=== PATIENT | male | born 1950 | race African-American/Black ===

== ENCOUNTER 2022-04-29 04:03 | Outpatient (CLI) | payer BC, SELFPAY ==
[2022-04-29 09:43] LABS: Abs Immature Grans 0.01 10^3/uL (0.0-0.06); Absolute Basophil Count 0.03 10^3/uL (0.0-0.2); Absolute Eosinophil Count 0.22 10^3/uL (0.0-0.7); Absolute Lymphocyte Count 4.29 10^3/uL (1.2-3.4); Absolute Monocyte Count 0.74 10^3/uL (0.1-0.8); Absolute Neutrophil Count 3.02 10^3/uL (1.2-6.7); Basophils % 0.4; Eosinophils % 2.6; HCT 40.2 % (40.0-50.0); HGB 13.7 g/dL (13.5-17.5); Immature Grans % 0.1; Lymphocytes % 51.6; MCHC 34.1 % (32.0-36.0); MCV 88 fL (80-95); MPV 9.5 fL (8.0-11.0); Monocytes % 8.9; Neutrophils % 36.4; Platelet Count 240 10^3/uL (130-400); RBC 4.57 10^6/uL (4.36-5.78); RDW 13.9 % (11.8-14.1); RDW-SD 44.7 fL; WBC 8.31 10^3/uL (4.4-10.8)
[2022-04-29 11:04] LABS: ALT 30 U/L (16-63); AST 22 U/L (15-37); Alkaline Phosphatase 62 U/L (46-116); Anion Gap 6.4 mmol/L (3-11); BUN 14 mg/dL (7-18); Bilirubin, Total 0.7 mg/dL (0.2-1.0); CO2 30.6 mmol/L (21.0-32.0); CREATININE 1.2 mg/dL (0.70-1.30); Calcium 9.2 mg/dL (8.5-10.1); Calculated LDL 76 mg/dL (<100); Chloride 105 mmol/L (98-107); Cholesterol 170 mg/dL (<200); Estimated GFR 63.85 (mL/min/1.73m2); Glucose 150 mg/dL (74-106); HDL Cholesterol 41 mg/dL (40-60); Magnesium 1.8 mg/dL (1.8-2.4); Potassium 3.1 mmol/L (3.5-5.1); Sodium 142 mmol/L (136-145); Total Protein 7.9 g/dL (6.4-8.2); Triglyceride 268 mg/dL (<150)
[2022-04-30 10:51] LABS: Hepatitis C Ab w Rflx HCV PCR Negative (Negative)
== END 2022-04-29 04:04 | disposition home or self-care (01) ==
LOC: LBO 04:04
PROVIDERS: PCP Nurse Practitioner; Referring Provider Nurse Practitioner; Visit Provider Nurse Practitioner
DX: E11.9 Type 2 diabetes mellitus without complications (principal); E78.5 Hyperlipidemia, unspecified; I10 Essential (primary) hypertension; R25.2 Cramp and spasm; Z11.59 Encounter for screening for other viral diseases
CPT/HCPCS: 36415; 80053; 80061; 86803; 83735; 85025

== ENCOUNTER 2022-05-20 14:12 | Outpatient (CLI) | payer BC, SELFPAY ==
--- NOTE | 2022-05-20 14:30 | RT.EKG_ITS ---
APPROVED REPORT Exam: Resting ECG Reason for Exam: dizziness Patient Location: O HR:74 bpm ECG Measurements Heart Rate 74 AXIS MO 211 P 12 QRSd 97 QRS -32 QT 420 T 4 QTc 466 Conclusion Sinus rhythm...normal P axis, V-rate 50- 99 Left axis deviation...QRS axis (-30,-90)
== END 2022-05-20 14:13 | disposition home or self-care (01) ==
PROVIDERS: PCP Nurse Practitioner; Visit Provider Nurse Practitioner
DX: R42 Dizziness and giddiness (principal); E87.6 Hypokalemia
CPT/HCPCS: 93010

== ENCOUNTER 2022-05-20 14:55 | Outpatient (REF) | payer BC, SELFPAY ==
[2022-05-20 18:43] LABS: Abs Immature Grans 0.01 10^3/uL (0.0-0.06); Absolute Basophil Count 0.04 10^3/uL (0.0-0.2); Absolute Eosinophil Count 0.21 10^3/uL (0.0-0.7); Absolute Lymphocyte Count 4.37 10^3/uL (1.2-3.4); Absolute Monocyte Count 0.71 10^3/uL (0.1-0.8); Absolute Neutrophil Count 3.07 10^3/uL (1.2-6.7); Basophils % 0.5; Eosinophils % 2.5; HCT 41.3 % (40.0-50.0); HGB 13.9 g/dL (13.5-17.5); Immature Grans % 0.1; MCH 29.7 pg (27.0-33.0); MCHC 33.7 % (32.0-36.0); MCV 88 fL (80-95); MPV 10.3 fL (8.0-11.0); Monocytes % 8.4; Neutrophils % 36.5; Platelet Count 263 10^3/uL (130-400); RBC 4.68 10^6/uL (4.36-5.78); RDW 13.5 % (11.8-14.1); RDW-SD 43.8 fL; WBC 8.41 10^3/uL (4.4-10.8)
[2022-05-20 18:53] LABS: Anion Gap 10.6 mmol/L (3-11); BUN 18 mg/dL (7-18); CO2 26.4 mmol/L (21.0-32.0); CREATININE 1.3 mg/dL (0.70-1.30); Calcium 9.6 mg/dL (8.5-10.1); Chloride 103 mmol/L (98-107); Estimated GFR 58.01 (mL/min/1.73m2); Glucose 153 mg/dL (74-106); Potassium 3.3 mmol/L (3.5-5.1); Sodium 140 mmol/L (136-145)
== END 2022-05-20 14:56 | disposition home or self-care (01) ==
LOC: LBN 14:55
PROVIDERS: PCP Nurse Practitioner; Visit Provider Nurse Practitioner
DX: R79.9 Abnormal finding of blood chemistry, unspecified (principal); E87.6 Hypokalemia
CPT/HCPCS: 80048; 85025

== ENCOUNTER 2022-08-23 19:21 | Outpatient (REF) | payer BC, SELFPAY ==
[2022-08-26 14:23] LABS: Helicobacter pylori Ag, Feces Positive (Negative)
== END 2022-08-23 19:22 | disposition home or self-care (01) ==
LOC: LBN 19:21
PROVIDERS: PCP Nurse Practitioner; Visit Provider Nurse Practitioner Family
DX: K21.9 Gastro-esophageal reflux disease without esophagitis (principal); R10.13 Epigastric pain
CPT/HCPCS: 87338

== ENCOUNTER 2022-09-23 08:45 | Emergency (ER) | payer BC, SELFPAY ==
[2022-09-23 08:49] VITALS: BP 144/82; PULSE 89; RESP 18; TEMP 36.3; O2SAT 95
--- NOTE | 2022-09-23 09:00 | DI.CT_ITS ---
Exam(s) CT ABDOMEN PELVIS W EXAM: CT ABDOMEN PELVIS W CLINICAL HISTORY: chronic recurrent abd pain TECHNIQUE: Imaging Protocol: Axial computed tomography images with coronal and sagittal reformatted images were created and reviewed CONTRAST MATERIAL: Intravenous: Omnipaque 350 Contrast volume:100 mL Oral: No COMPARISON: No exams were available for comparison FINDINGS: ABDOMEN: Lung Bases: Marked coronary artery calcification and/or stents. There are infiltrates seen in the ri ght middle lobe and the left lingula with bronchiectatic changes. Liver: Normal density. No suspicious hepatic mass. Portal, Superior Mesenteric, and Splenic Veins: Unremarkable. Gallbladder and Biliary Tract: The gallbladder is distended. There is thickening of the wall of the gallbladder. Pericholecystic fluid and inflammation is present. There is no intra or extrahepatic b iliary ductal dilatation. No calcified stones are identified. Pancreas: Normal density, no abnormal calcifications or inflammatory process. Spleen: Normal. Adrenals: No masses seen. Kidneys: Normal size, contour and axis. No radiodense stones or obstructive uropathy. There are bilat eral simple renal cysts present. The largest simple renal cyst is seen in the midpole of the left ki dney and measures 6.3 x 7.3 cm. There is a septated cyst in the superior pole of the right kidney me asuring 7.6 x 8.1 cm. There thin septations seen within the cyst. The septations show thin calcific ation. No solid component is identified. No solid renal masses are seen. Abdominal Aorta: Abdominal portion non-dilated. Atherosclerosis. Bowel: There is diverticulosis of the colon, but no evidence of acute diverticulitis. There is a sma ll diverticulum arising from the duodenum. There is no evidence of bowel wall thickening or or obstr uction. Appendix is unremarkable. Peritoneal Cavity: No ascites, collection or mesenteric inflammatory response. No free air. Lymph Nodes: Mildly enlarged lymph nodes are seen in the upper abdomen. Bones: Within normal limits for the patient's age. Soft Tissues: Unremarkable. PELVIS: Bladder: There is thickening of the wall of the urinary bladder. The bladder is underdistended. Reproductive Organs: There is markedly enlarged prostate gland. Lymph Nodes: Within normal limits. Bones: Within normal limits for the patient's age. IMPRESSION: 1. Distended irregular good gallbladder with irregular gallbladder wall thickening. Pericholecystic inflammation is seen. There is decreased attenuation in the adjacent liver. No calcified stones are seen. Differential considerations include acalculous cholecystitis, gallbladder or hepatic neoplasm . Pancreatic neoplasm cannot be excluded. Gallbladder ultrasound should be considered in this patie nt. 2. Bilateral renal cysts. No follow-up is recommended. 3. Infiltrates in both the right middle and left lingular lobes with focal bronchiectasis. This may represent scarring. Atelectasis or pneumonia should also be considered. Please correlate clinically . 4. Marked enlargement of the prostate gland. 5. Findings were discussed with Dr. Cullen at 11:47 a.m. on 09/23/2022. RADIATION DOSE DELIVERED: 913.8mGy.cm Total DLP DATA REPOSITORY: All CT scans at this facility are submitted to the National Radiology Data Registry (NRDR) Dose Index Registry (DIR) with the [employer] (ACR). RADIATION OPTIMIZATION: All CT scans at this facility use at least one of these dose optimization te chniques: automated exposure control; mA and/or kV adjustment per patient size (includes targeted exa ms where dose is matched to clinical indication); or iterative reconstruction.
[2022-09-23] MEDS: Normal Saline 1,000 ML 1000 ML IV (09:05)
--- NOTE | 2022-09-23 09:07 | W.ED.GENAD ---
Discharge Plan Disposition Patient Disposition: Transfer-Acute Inpatient Care Specific Acute Inpt Facility: [facility] Condition: Stable Discharge Details Chief Complaint: Abd Prob Clinical Impression: Cholecystitis, Choledocholithiasis Primary Care Provider: Donna Henson ED Provider: Demarco Cullen Home Meds and New Rx's Prescriptions: No Action nystatin 100,000 unit/gram cream 1 applic topical BID PRN (Reason: fungal rash feet) Qty: 30 5RF atorvastatin 10 mg tablet 10 mg PO DAILY Qty: 90 1RF amlodipine 10 mg tablet 10 mg PO DAILY Qty: 90 1RF bisoprolol fumarate 5 mg tablet 5 mg PO DAILY Qty: 90 1RF losartan 100 mg tablet 100 mg PO DAILY Qty: 90 1RF metformin 500 mg tablet 500 mg PO DAILY Qty: 90 1RF hydrochlorothiazide 12.5 mg tablet 12.5 mg PO DAILY aspirin [Adult Aspirin Regimen] 81 mg tablet,delayed release (DR/EC) 81 mg PO DAILY Medical Decision Making 71-year-old male presents with recurrent abdominal pain nausea decreased p.o. intake, recently completed a course of antibiotics for H. pylori, no history of abdominal surgeries, resting comfortably hemodynamically stable not on peritoneal. Consider recurrent gastritis versus colitis versus diverticulitis versus less likely bowel obstruction versus must consider malignancy versus irritable bowel disease. Screening labs imaging GI cocktail disposition pending results 13: 15 CT scan concerning for a calculus cholecystitis. Upon reviewing images and discussing case with general surgeon Dr. Moss, common bile duct does appear to be dilated and patient does have an obstructive pattern on his hepatic labs concerning for choledocholithiasis and cholecystitis. Given likely need for ERCP we are consulting [facility] to see if they would like to take patient for ERCP and cholecystectomy. Started on antibiotics n.p.o. fluids running pain controlled. 14: 28 patient resting comfortably no acute distress. Discussed case with Dr. Coleman of general surgery at [facility] who agrees the patient will likely need ERCP and cholecystectomy however due to bed constraints we are currently working out how this can be accomplished. Waiting for callback. 15: 03 patient was comfortably no acute distress. Patient has been accepted for ED to ED transfer accepting physician Dr. Madden. Patient family amenable to trial HPI General Date/Time Provider Initiated Documentation: 09/23/22 08:49. HPI Narrative: 71-year-old male history of hypertension diabetes recent completion of oral antibiotics for H. pylori, recurrent gastritis abdominal pain presents with recurrent abdominal discomfort nausea and decreased p.o. intake. No history of abdominal surgeries. Related Data Home Medications Medication Instructions Recorded Confirmed aspirin 81 mg tablet,delayed 81 mg PO DAILY 12/02/21 09/23/22 release (Adult Aspirin Regimen) amlodipine 10 mg tablet 10 mg PO DAILY #90 tabs 04/22/22 09/23/22 atorvastatin 10 mg tablet 10 mg PO DAILY #90 tabs 04/22/22 09/23/22 bisoprolol fumarate 5 mg tablet 5 mg PO DAILY #90 tabs 04/22/22 09/23/22 losartan 100 mg tablet 100 mg PO DAILY #90 tabs 04/22/22 09/23/22 metformin 500 mg tablet 500 mg PO DAILY #90 tabs 04/22/22 09/23/22 nystatin 100,000 unit/gram topical 1 applic topical BID PRN fungal 04/22/22 09/23/22 cream rash feet #30 grams hydrochlorothiazide 12.5 mg tablet 12.5 mg PO DAILY 08/19/22 09/23/22 Previous Rx's Medication Instructions Recorded amlodipine 10 mg tablet 10 mg PO DAILY #90 tabs 04/22/22 atorvastatin 10 mg tablet 10 mg PO DAILY #90 tabs 04/22/22 bisoprolol fumarate 5 mg tablet 5 mg PO DAILY #90 tabs 04/22/22 losartan 100 mg tablet 100 mg PO DAILY #90 tabs 04/22/22 metformin 500 mg tablet 500 mg PO DAILY #90 tabs 04/22/22 nystatin 100,000 unit/gram topical 1 applic topical BID PRN fungal 04/22/22 cream rash feet #30 grams Allergies Allergy/AdvReac Type Severity Reaction Status Date / Time environmental allergies Allergy Intermediate dust, Uncoded 09/23/22 08:57 hayfever General Stated Complaint: Abd Prob RADHA: 3 Review of Systems Narrative: Review of Systems Constitutional: negative Eyes: negative ENT: negative Cardiovascular: negative Respiratory: negative Gastrointestinal: Abdominal pain, nausea : negative Musculoskeletal: negative Skin: negative Neurologic: negative Psych: negative PFSH All Active Problems (Updated 09/23/22 @ 15:11 by Demarco Cullen MD) Cholecystitis (Acute) Choledocholithiasis (Acute) Helicobacter pylori (H. pylori) infection (Acute ~08/2022) Gastroesophageal reflux disease (Chronic) Hyperlipidemia (Acute) Diabetes type 2, controlled (Acute) Hypertension (Chronic) Family History Paternal Grandfather Cancer Mother Heart disease Hypertension Father Hypertension Social History Smoking/Tobacco Use Status: Former Tobacco Use Smoking risk assessment performed?: Yes Alcohol Intake: former Drug use: Never Household members: family Communication Needs: None Current gender identity: male How often do you talk on the phone with friends or family?: three or more times per week Panel score (0-1 are the most socially isolated patients): 1 What type of physical activity do you participate in: none Do you feel safe at home: Yes Exam Narrative Exam Narrative: Physical Examination General: alert, awake, cooperative, resting comfortably, no acute distress HEENT: normocephalic, atraumatic; PERRL, EOM intact, conjunctiva normal; no nasal discharge; slight drying of oral mucosa Neck: supple, trachea midline; full ROM Chest: normal to inspection Respiratory: normal respiratory effort, speaking in full sentences, clear to auscultation, no wheezing, rales or rhonchi Cardiac: regular rate, regular rhythm, S1S2 intact, no murmurs rubs or gallops GI: abdomen soft, non-tender, non-distended; no palpable mass or hepatosplenomegaly Skin: no lesions, rashes or trauma appreciated Neuro: AAOx3, normal speech, moving all extremities Psych: Appropriate mood and affect Course Vital Signs Vital signs: Vital Signs Temperature 36.3 C L 09/23/22 08:49 Pulse 89 09/23/22 08:49 Respiratory Rate 18 09/23/22 08:49 Blood Pressure 144/82 H 09/23/22 08:49 Pulse Oximetry 95 09/23/22 08:49 Temperature 36.3 C L 09/23/22 08:49 Temperature Source Tympanic 09/23/22 08:49 Pulse 89 09/23/22 08:49 Respiratory Rate 18 09/23/22 08:49 Respiratory Effort Normal 09/23/22 08:53 Blood Pressure 144/82 H 09/23/22 08:49 Blood Pressure Position Sitting 09/23/22 08:49 Pulse Oximetry 95 09/23/22 08:49 Oxygen Delivery Method Room Air 09/23/22 08:49 Oxygen Flow Rate 0 09/23/22 08:49 Pain Level 2 09/23/22 08:54
[2022-09-23 09:22] LABS: Abs Immature Grans 0.07 10^3/uL (0.0-0.06); Absolute Eosinophil Count 0.04 10^3/uL (0.0-0.7); Absolute Monocyte Count 1.53 10^3/uL (0.1-0.8); Absolute Neutrophil Count 9.21 10^3/uL (1.2-6.7); Basophils % 0.1; Eosinophils % 0.3; HCT 38.3 % (40.0-50.0); HGB 12.7 g/dL (13.5-17.5); Immature Grans % 0.5; MCH 28.7 pg (27.0-33.0); MCHC 33.2 % (32.0-36.0); MCV 87 fL (80-95); MPV 9.1 fL (8.0-11.0); Monocytes % 11.3; Neutrophils % 67.8; RBC 4.42 10^6/uL (4.36-5.78); RDW 14.5 % (11.8-14.1); RDW-SD 46.7 fL; WBC 13.58 10^3/uL (4.4-10.8)
[2022-09-23 09:24] LABS: Absolute Basophil Count 0.01 10^3/uL (0.0-0.2); Absolute Lymphocyte Count 2.72 10^3/uL (1.2-3.4)
[2022-09-23] MEDS: Ondansetron 4 MG/2 ML VIAL IVP (09:25)
[2022-09-23] MEDS: Famotidine 20 MG/2 ML VIAL IVP (09:26)
[2022-09-23] MEDS: ACETAMINOPHEN 1,000 MG/100 ML BTL 400 MG IVPB (09:29)
[2022-09-23] MEDS: Mylanta Suspension 30 ML CUP (09:43)
[2022-09-23 09:47] LABS: ALT 264 U/L (16-63); AST 175 U/L (15-37); Albumin 3.6 g/dL (3.4-5.0); Alkaline Phosphatase 308 U/L (46-116); Anion Gap 7.7 mmol/L (3-11); BUN 15 mg/dL (7-18); CO2 29.3 mmol/L (21.0-32.0); CREATININE 1.4 mg/dL (0.70-1.30); Calcium 9.4 mg/dL (8.5-10.1); Chloride 101 mmol/L (98-107); Estimated GFR 53.07 (mL/min/1.73m2); Glucose 125 mg/dL (74-106); Lipase 35 U/L (16-77); Potassium 3.7 mmol/L (3.5-5.1); Sodium 138 mmol/L (136-145); Total Protein 7.7 g/dL (6.4-8.2)
[2022-09-23 09:48] LABS: Diff Comment Agrees w/ Instrument; Platelet Count 300 10^3/uL (130-400); RBC Morphology Normal
[2022-09-23 09:57] LABS: Bilirubin, Total 6.9 mg/dL (0.2-1.0)
[2022-09-23 10:35] LABS: Bilirubin Moderate (Negative); Blood Negative (Negative); Clarity Clear (Clear); Glucose Negative (Negative); Ketones Negative (Negative); Leukocyte Esterase Negative (Negative); Nitrite Negative (Negative); Specific Gravity 1.015 (1.005-1.025)
[2022-09-23] MEDS: Omnipaque 350 MG/ML 500 ML BTL-Imaging package 100 ML IJ (10:36)
[2022-09-23] MEDS: Normal Saline - Diluent 50 ML VIAL IJ (10:37)
[2022-09-23 10:47] LABS: Bacteria Negative HPF (Negative); C & S Indicated? No; Casts Negative LPF (Negative); Crystals Negative HPF (Negative); Epithelial Cells Rare HPF (Negative); Mucus Trace (Negative); RBC 0-2 HPF (0-2); WBC 0-2 HPF (0-5)
[2022-09-23 11:17] VITALS: BP 132/75; PULSE 82; RESP 14; O2SAT 96
[2022-09-23 12:18] VITALS: BP 135/71; PULSE 85; RESP 14; O2SAT 95
[2022-09-23] MEDS: PIPERACILLIN/TAZO 4.5 GM in Normal Saline 100 ML IVPB (12:29)
--- NOTE | 2022-09-23 12:41 | W.SURGCON ---
Date of service: 09/23/22 Time of Service: 13:05 Assessment and Plan Assessment and plan (1) Choledocholithiasis: Status: Acute Assessment and plan: 71-year-old man with biliary duct obstruction based off of his lab work. He is hemodynamically stable. His symptoms have been present for months. I suspect he has been having symptomatic gallbladder attacks and/for chronic cholecystitis for months but has finally passed a gallstone into his common bile duct. Mirrizi syndrome is something to consider however unusual for the bilirubin to go so high in this syndrome. Though he is hemodynamically stable and neurologically intact, ascending cholangitis is a concern. He has a leukocytosis and his bilirubin is normal 7. I reviewed his CT scan and his common bile duct looks like it is 10-11 mm in diameter to which he is dilated. His gallbladder looks chronically thickened which is probably chronic cholecystitis. Gallbladder malignancy is within the differential diagnosis considering the radiographic appearance. The xanthogranulomatous cholecystitis could also be considered based off of the radiographic appearance. The acute part of the presentation today, which is really a very chronic condition that appears to be acutely worse, I recommend prompt ERCP. To definitively assess the bile duct we can get an MRCP done here today however I think he needs an ERCP done prior to surgery. If ERCP fails, a common bile duct exploration will need to be done surgically. I recommend clearing the duct prior to cholecystectomy which is also going to be a necessity. The patient can be transferred to [facility] for ERCP and the cholecystectomy can be done here at [facility]. We will keep him on antibiotics in the meantime. Hopefully they are able to do the ERCP today and if so, we can do his gallbladder tomorrow. I relayed all this to the ER physician who is going to consult GI for urgent ERCP. History of Present Illness Narrative: The patient is a 71-year-old man who has never had abdominal surgery and overall does not really have any known health problems. His daughter is a nurse. Per both of their report, he has been having abdominal discomfort, nausea, reflux and issues with eating for many many months now. He has had outpatient work-up that has not revealed anything as of yet. He was found to have H. pylori 3 to 4 weeks ago and is currently being treated for that but has had no improvement in any of his symptoms. They come into the ER today, not because symptoms are any worse than usual, but because they feel that things are not getting any better and the daughter is concerned that there is something more urgent going on. Lab work showed a leukocytosis, a bilirubin of almost 7 and elevated transaminases and elevated alk phosphatase. A CT scan was done which showed a thickened gallbladder. He denies any fevers or chills at home. No prior intra-abdominal surgery. PFSH All Active Problems (Updated 09/23/22 @ 15:11 by Demarco Cullen MD) Cholecystitis (Acute) Choledocholithiasis (Acute) Helicobacter pylori (H. pylori) infection (Acute ~08/2022) Gastroesophageal reflux disease (Chronic) Hyperlipidemia (Acute) Diabetes type 2, controlled (Acute) Hypertension (Chronic) Family History Paternal Grandfather Cancer Mother Heart disease Hypertension Father Hypertension Social History Smoking/Tobacco Use Status: Former Tobacco Use Smoking risk assessment performed?: Yes Alcohol Intake: former Drug use: Never Household members: family Communication Needs: None Current gender identity: male How often do you talk on the phone with friends or family?: three or more times per week Panel score (0-1 are the most socially isolated patients): 1 What type of physical activity do you participate in: none Do you feel safe at home: Yes Exam Narrative Exam Narrative: General: Nontoxic, comfortable and interactive, scleral icterus is noted Neuro: Alert and oriented x3 Psych: Good mood and affect, reasonable insight and understanding Abdomen: Soft, nondistended and nontender Results Last Vital Signs Temp 97.4 F L 09/23/22 08:49 Pulse 85 09/23/22 12:18 Resp 14 09/23/22 12:18 BP 135/71 09/23/22 12:18 Pulse Ox 95 09/23/22 12:18 Labs 09/23/22 09:05 09/23/22 09:27 Labs: Laboratory Results - last 24 hr 09/23/22 09/23/22 09/23/22 09:05 09:05 09:05 WBC 13.58 H RBC 4.42 Hgb 12.7 L Hct 38.3 L MCV 87 MCH 28.7 MCHC 33.2 RDW 14.5 H Plt Count 300 MPV 9.1 Immature Gran % 0.5 Neutrophils % 67.8 Lymphocytes % 20.0 Monocytes % 11.3 Eosinophils % 0.3 Basophils % 0.1 Nucleated RBC % 0.0 Absolute Neutrophils 9.21 H Absolute Lymphocytes 2.72 Absolute Monocytes 1.53 H Absolute Eosinophils 0.04 Absolute Basophils 0.01 RBC Morphology Normal Sodium Cancelled Potassium Cancelled Chloride Cancelled Carbon Dioxide Cancelled Anion Gap Cancelled BUN Cancelled Creatinine Cancelled Est GFR (CKD-EPI 2020) Cancelled Glucose Cancelled Calcium Cancelled Total Bilirubin Cancelled AST Cancelled ALT Cancelled Alkaline Phosphatase Cancelled Total Protein Cancelled Albumin Cancelled Lipase Cancelled Cancelled Urine Color Urine Clarity Urine pH Ur Specific [place] Urine Protein Urine Ketones Urine Blood Urine Nitrite Urine Bilirubin Urine Urobilinogen Ur Leukocyte Esterase Urine RBC Urine WBC Ur Epithelial Cells Urine Crystals Urine Bacteria Urine Casts Urine Mucus Ur Culture Indicated? Urine Glucose 09/23/22 09/23/22 09:27 10:20 WBC RBC Hgb Hct MCV MCH MCHC RDW Plt Count MPV Immature Gran % Neutrophils % Lymphocytes % Monocytes % Eosinophils % Basophils % Nucleated RBC % Absolute Neutrophils Absolute Lymphocytes Absolute Monocytes Absolute Eosinophils Absolute Basophils RBC Morphology Sodium 138 Potassium 3.7 Chloride 101 Carbon Dioxide 29.3 Anion Gap 7.7 BUN 15 Creatinine 1.4 H Est GFR (CKD-EPI 2020) 53.07 Glucose 125 H Calcium 9.4 Total Bilirubin 6.9 H AST 175 H ALT 264 H Alkaline Phosphatase 308 H Total Protein 7.7 Albumin 3.6 Lipase 35 Urine Color Yellow Urine Clarity Clear Urine pH 6.0 Ur Specific [place] 1.015 Urine Protein 30 H Urine Ketones Negative Urine Blood Negative Urine Nitrite Negative Urine Bilirubin Moderate H Urine Urobilinogen 1.0 H Ur Leukocyte Esterase Negative Urine RBC 0-2 Urine WBC 0-2 Ur Epithelial Cells Rare Urine Crystals Negative Urine Bacteria Negative Urine Casts Negative Urine Mucus Trace Ur Culture Indicated? No Urine Glucose Negative
--- NOTE | 2022-09-23 14:00 | DI.MRI_ITS ---
Exam(s) MR ABDOMEN WO EXAM: MR ABDOMEN WO CLINICAL HISTORY: Bile duct obstruction TECHNIQUE: Multiplanar multisequence MRI of the Abdomen was performed. COMPARISON: CT CT ABDOMEN PELVIS W from 09/23/2022 FINDINGS: The examination is limited due to patient motion artifact. Liver: Unremarkable. Pancreas: Unremarkable. Gallbladder and Bile Ducts: The gallbladder is distended. There is a thickened gallbladder wall. Th ere are filling defects seen in the neck of the gallbladder which may represent small gallstones. Mi ld pericholecystic stranding. Adrenals: Unremarkable. Kidneys: There benign simple renal cysts bilaterally. No follow-up is recommended. Spleen: Unremarkable. Bowel: There diverticula in the colon, but no evidence of acute diverticulitis. Aorta: Unremarkable. Soft Tissues: Unremarkable. Bone: Unremarkable. Lymph Nodes: Unremarkable. IMPRESSION: Findings suspicious for acute cholecystitis. Filling defects seen in the neck of the gallbladder rashawn picious for gallstones. Ultrasound may be obtained for further evaluation. DATA REPOSITORY:
[2022-09-23 14:24] VITALS: BP 136/76; PULSE 72; RESP 14; O2SAT 97
--- NOTE | 2022-09-23 15:22 | DI.VRAD_ITS ---
PROCEDURE INFORMATION: Exam: MR Abdomen Without Contrast, Biliary System Exam date and time: 09/23/2022 1:26 PM Age: 71 years old Clinical indication: Abdominal pain; Epigastric; Patient HX: Bile duct obstruction. TECHNIQUE: Imaging protocol: MR of the abdomen without contrast. Exam focused on the biliary system and pancreatic ducts. Routine 3D-MRCP images were acquired and processed without radiologist supervision. COMPARISON: CT ABDOMEN PELVIS W 09/23/2022 10:32 AM FINDINGS: Liver: Mild periportal edema Gallbladder and bile ducts: Distended gallbladder. Thickened gallbladder wall. Prior cholecystic soft tissue stranding. Findings consistent with acute cholecystitis, as demonstrated today's abdominal CT. Gallbladder ultrasound recommended. Small filling defects near the neck of the gallbladder suspicious for minimal cholelithiasis. See axial series 4001, image 9 and coronal series 3001, image 19. Pancreas: Unremarkable. No ductal dilation. Kidneys and ureters: Benign bilateral renal cysts. Intraperitoneal space: No fluid collection. Other findings: Images are degraded motion. IMPRESSION: 1. Findings highly suspicious for acute cholecystitis with possible small stones near the neck gallbladder but no bile duct dilatation. Ultrasound is recommended. 2. Benign bilateral renal cysts Dictated and Authenticated by: Dunia Olvera MD. Ordering:VICKI Vivar MD
[2022-09-24 11:40] LABS: Hepatitis A Antibody IgM Negative (Negative); Hepatitis B Core Antibody Negative (Negative); Hepatitis B surface Ag Negative (Negative); Hepatitis C Ab w Rflx HCV PCR Negative (Negative)
== END 2022-09-23 16:31 | disposition short-term general hospital (02) ==
PROVIDERS: Emergency Provider Emergency Medicine; PCP Nurse Practitioner
DX: K80.40 Calculus of bile duct with cholecystitis, unspecified, without obstruction (principal)
CPT/HCPCS: 36415; 80053; 83690; 86704; 86709; 86803; 87340; 96361; 96365; 96367; 96375; 99285; 74177; 74181; 81003; 81015; 85025; J0131; J2405; J2543

== ENCOUNTER 2022-11-07 20:06 | Emergency (ER) | payer BC, SELFPAY ==
[2022-11-07 20:23] VITALS: BP 142/70; PULSE 66; RESP 14; TEMP 36.7; O2SAT 100
[2022-11-07 20:55] VITALS: BP 141/71; PULSE 63
--- NOTE | 2022-11-07 21:00 | DI.CT_ITS ---
Exam(s) CT ABDOMEN PELVIS W EXAM: CT ABDOMEN PELVIS W CLINICAL HISTORY: post surgical incision site pain at superior aspec TECHNIQUE: Imaging Protocol: Axial computed tomography images with coronal and sagittal reformatted images were created and reviewed CONTRAST MATERIAL: Intravenous: Omnipaque 350 Contrast volume:100 mL Oral: No COMPARISON: MR MR ABDOMEN WO from 09/23/[address] ABDOMEN PELVIS W from 09/23/2022 FINDINGS: ABDOMEN: Lung Bases: Coronary artery calcifications are present. Mild cardiomegaly. Atelectasis in the lung bases. Liver: Normal density. No measurable mass. Portal, Superior Mesenteric, and Splenic Veins: Unremarkable. Gallbladder and Biliary Tract: Status post cholecystectomy. There is a biliary stent in place. Pneu mobilia is seen as a result. Stranding/inflammation is seen in the gallbladder fossa. Small rim enh ancing fluid collections are seen in the gallbladder fossa. Measure mint maximally is 3.3 cm. Pancreas: Normal density, no abnormal calcifications or inflammatory process. Spleen: Normal. Adrenals: No masses seen. Kidneys: Normal size, contour and axis. No radiodense stones or obstructive uropathy. There is stable bilateral renal cysts. No follow-up is recommended. Abdominal Aorta: Abdominal portion non-dilated. Mild atherosclerosis. Bowel: There is diverticulosis seen in the colon, but no evidence of acute diverticulitis. There is no evidence of bowel obstruction or inflammation. Appendix is unremarkable. Peritoneal Cavity: No ascites, collection or mesenteric inflammatory response. No free air. Lymph Nodes: Within normal limits. Bones: Within normal limits for the patient's age. Soft Tissues: Unremarkable. PELVIS: Bladder: There is diffuse thickening of the wall of the urinary bladder. Reproductive Organs: There is marked enlargement of the prostate gland. Lymph Nodes: Within normal limits. Bones: Within normal limits for the patient's age. IMPRESSION: 1. Status post cholecystectomy and interval placement of a biliary stent. 2. Inflammation and small fluid collection seen in the gallbladder fossa suspicious for abscess. RADIATION DOSE DELIVERED: Total DLP DATA REPOSITORY: All CT scans at this facility are submitted to the National Radiology Data Registry (NRDR) Dose Index Registry (DIR) with the [employer] (ACR). RADIATION OPTIMIZATION: All CT scans at this facility use at least one of these dose optimization te chniques: automated exposure control; mA and/or kV adjustment per patient size (includes targeted exa ms where dose is matched to clinical indication); or iterative reconstruction.
[2022-11-07 21:01] VITALS: BP 133/70; PULSE 62
[2022-11-07 21:20] LABS: Abs Immature Grans 0.01 10^3/uL (0.0-0.06); Absolute Basophil Count 0.03 10^3/uL (0.0-0.2); Absolute Eosinophil Count 0.15 10^3/uL (0.0-0.7); Absolute Lymphocyte Count 4.57 10^3/uL (1.2-3.4); Absolute Monocyte Count 0.63 10^3/uL (0.1-0.8); Basophils % 0.4; HCT 38.3 % (40.0-50.0); HGB 12.2 g/dL (13.5-17.5); Immature Grans % 0.1; Lymphocytes % 59.4; MCH 27.9 pg (27.0-33.0); MCHC 31.9 % (32.0-36.0); MCV 87 fL (80-95); Monocytes % 8.2; Neutrophils % 29.9; Platelet Count 316 10^3/uL (130-400); RBC 4.38 10^6/uL (4.36-5.78); RDW 14.2 % (11.8-14.1); RDW-SD 45.8 fL; WBC 7.69 10^3/uL (4.4-10.8)
[2022-11-07 21:43] LABS: ALT 24 U/L (16-63); AST 13 U/L (15-37); Albumin 3.9 g/dL (3.4-5.0); Alkaline Phosphatase 89 U/L (46-116); Anion Gap 9.6 mmol/L (3-11); BUN 13 mg/dL (7-18); Bilirubin, Total 0.6 mg/dL (0.2-1.0); CO2 28.4 mmol/L (21.0-32.0); CREATININE 1.1 mg/dL (0.70-1.30); Calcium 9.5 mg/dL (8.5-10.1); Chloride 104 mmol/L (98-107); Estimated GFR 70.44 (mL/min/1.73m2); Glucose 139 mg/dL (74-106); Potassium 3.5 mmol/L (3.5-5.1); Sodium 142 mmol/L (136-145); Total Protein 8.2 g/dL (6.4-8.2)
[2022-11-07] MEDS: Normal Saline Flush 10 ML SYR IVP (21:51)
[2022-11-07] MEDS: Normal Saline - Diluent 50 ML VIAL IJ (21:52)
[2022-11-07] MEDS: Omnipaque 350 MG/ML 100 ML BTL IJ (21:52)
[2022-11-07 22:32] VITALS: BP 83/53; PULSE 122
--- NOTE | 2022-11-07 22:32 | ED.GENADUL_ITS ---
Discharge Plan Disposition Patient Disposition: Home Condition: Good Discharge Details Clinical Impression: Post-operative pain Primary Care Provider: Donna Henson ED Provider: Donnell Gibson Home Meds and New Rx's Prescriptions: No Action nystatin 100,000 unit/gram cream 1 applic topical BID PRN (Reason: fungal rash feet) Qty: 30 5RF atorvastatin 10 mg tablet 10 mg PO DAILY Qty: 90 1RF amlodipine 10 mg tablet 10 mg PO DAILY Qty: 90 1RF bisoprolol fumarate 5 mg tablet 5 mg PO DAILY Qty: 90 1RF losartan 100 mg tablet 100 mg PO DAILY Qty: 90 1RF metformin 500 mg tablet 500 mg PO DAILY Qty: 90 1RF hydrochlorothiazide 12.5 mg tablet 12.5 mg PO DAILY fluticasone propionate 50 mcg/actuation spray,suspension 2 spray intranasal DAILY Qty: 16 3RF Rx Instructions: administer into each nostril Glucerna Shake Liquid 237 ml PO BID Qty: 30 0RF aspirin [Adult Aspirin Regimen] 81 mg tablet,delayed release (DR/EC) 81 mg PO DAILY pantoprazole [Protonix] 20 mg tablet,delayed release (DR/EC) 40 mg PO DAILY Discharge Instructions Additional Instructions: At this time the [facility] surgeons have reviewed the images, and they do not see any indication for emergent surgery or transfer or admission. Clinically you otherwise look well, your laboratory work-up is very reassuring. At this time what they would like to do is follow-up closely with you on at your scheduled appointment. The surgeons will also see with you with a currency machine operator for reassessment. In the meantime please take Tylenol or Motrin as needed for pain. Monitor your symptoms closely. If you notice any worsening of your symptoms, or any new symptoms such as vomiting, diarrhea, fever, chills, shortness of breath, chest pain, numbness, weakness, or fainting , please return immediately to the emergency department for reevaluation. Please follow up with your primary care provider as soon as possible for reassessment and reevaluation. As always, it was a pleasure participating in your medical care today. Referrals: Donna Henson NP [Primary Care Provider] - Discharge Data Discharge Date/Time-TO BE ENTERED AT DEPARTURE: 11/07/22 23:28 Medical Decision Making 72-year-old -[place] male who presents today for evaluation of postoper ative incisional pain. On 09/24 the patient had evidence of cholecystitis, patient had an open cholecystectomy with associated pus and severe adhesions, sphincterotomy/papillotomy, and eventually had an ERCP performed as well. Drain was placed for external drain, as well as stenting. Drain was eventually removed on an outpatient setting. He was discharged home and been doing well. Over the last week he has noticed a lump at the superior aspect of his open incisional site. The lump began becoming tender, and was only tender when he would lay down. There is a small area at the most proximal aspect. He denies any drainage. He denies any fever or chills. He is still having regular bowel movements. No urinary complaints. No other complaints at this time. Exam demonstrates a single location of tenderness at the proximal aspect of the incisional site from his open cholecystectomy, no drainage or redness or warmth to suggest infection. The area itself of swelling is only about 1 cm in diameter, and is tender to palpation. No tenderness throughout the rest of the abdomen. No guarding or rebound. No drainage through the incisional site. Differential is highest for seroma, or complication from an internal suture. However with his notable operative challenges there may be component of a tract or fistula. We will get a CT scan, monitor closely and reassess. Patient does not want anything for pain at this time. 1:[address] scan shows evidence of a small multiloculated abscess in the gallbladder fossa, however this is not where the patient's pain is. No evidence of si gnificant seroma or abscess at the surgical incision site. No abdominal wall abscess or dehiscence. Repeat exam was performed and patient continues to show no right lower quadrant tenderness whatsoever. Patient also has no right upper quadrant tenderness whatsoever. No white count bandemia or left shift. Electrolytes stable, laboratory work-up normal otherwise. I did contact the surgeon Dr. Astorga at [facility], she reviewed the images, she feels that the multiloculated abscess in the gallbladder fossa is reflective of the notably complicated surgery rather than an acute process. Clinically the patient does not show evidence of an acute process as he has no tenderness, no white count, no fever or chills. Patient appears notably clinically stable. Patient otherwise feels stable. I discussed this with the patient as well as the patient's daughter. They feel stable and they feel comfortable going home. Patient does have an appointment on at [facility] with surgery. They will follow-up closely with them. Patient stable for discharge. I have extensively reviewed the treatment plan and discharge instructions with the patient. I have addressed all patient concerns at this time. The patient was made aware of what symptoms to monitor for that would warrant a return to the emergency department. Discussed the plan with the patient, they demonstrate verbal understanding and agreement with our assessment and plan at this time. The documentation in this chart was dictated using [employer] dictation software. Please excuse any dictation errors. FINDINGS: Lungs: Scar tissue or atelectasis is observed in the lung bases. Heart: Mild cardiomegaly. No pericardial effusion. Liver: Homogeneous liver parenchyma. No abscess. No mass. Gallbladder and bile ducts: Common bile duct stent is in place. Mild pneumobilia is observed. Small rim enhancing fluid collections are present in the gallbladder fossa, with a small focus of gas; see axial images 22-25 series 4 and coronal images 44-48 series 6. The greatest extent of the collections is 3.3 cm, coronal image 46 series 6. Mild free fluid and moderate fat stranding are present in the gallbladder fossa. Pancreas: Normal. No ductal dilation. No significant inflammatory change. Spleen: Normal. No splenomegaly. Adrenal glands: Normal. No mass. Kidneys and ureters: No hydronephrosis. No suspicious renal mass. Multiple cysts are present in both kidneys, largest 8 cm diameter on the right, Hounsfield units 1, with thin septations. Nondilated ureters. No ureteral stones. Stomach and bowel: Unremarkable stomach. Mild fat stranding noted around the proximal duodenum. Nondilated small bowel. Negative for inflammatory changes around the colon. Scattered descending/sigmoid diverticula noted. Appendix: Normal appendix. Intraperitoneal space: Trace free fluid is observed around the liver. No pelvic free fluid. No intraperitoneal free air. Vasculature: Patent portal vein and hepatic veins. Moderate vascular calcifications. Negative for abdominal aortic aneurysm. Lymph nodes: Unremarkable. No enlarged lymph nodes. Urinary bladder: Mild wall thickening, 6 mm. Mild fat stranding. No stones. Reproductive: Large prostate. Bones/joints: No compression fractures. Mild degenerative changes noted in the spine. Dense ossification is observed at the distal right iliopsoas tendon. Soft tissues: Scar tissue noted at midline in the supraumbilical abdominal wall. No abdominal wall fluid collections. No dehiscence. IMPRESSION: 1. Small multiloculated abscess in the gallbladder fossa. 2. No abdominal wall abscess or dehiscence. Thank you for allowing us to participate in the care of your patient. Dictated and Authenticated by: Christian Chan MD 11/07/2022 10:43 PM Eastern Time ([place] & [place]) HPI General Date/Time Provider Initiated Documentation: 11/07/22 21:02 . HPI Narrative: 72-year-old -[place] male who presents today for evaluation of postoperative incisional pain. On 09/24 the patient had evidence of cholecystitis, patient had an open cholecystectomy with associated pus and severe adhesions, sphincterotomy/papillotomy, and eventually had an ERCP performed as well. Drain was placed for external drain, as well as stenting. Drain was eventually removed on an outpatient setting. He was discharged home and been doing well. Over the last week he has noticed a lump at the superior aspect of his open incisional site. The lump began becoming tender, and was only tender when he would lay down. There is a small area at the most proximal aspect. He denies any drainage. He denies any fever or chills. He is still having regular bowel movements. No urinary complaints. No other complaints at this time. Related Data Home Medications Medication Instructions Recorded Confirmed aspirin 81 mg tablet,delayed 81 mg PO DAILY 12/02/21 09/23/22 release (Adult Aspirin Regimen) amlodipine 10 mg tablet 10 mg PO DAILY #90 tabs 04/22/22 09/23/22 atorvastatin 10 mg tablet 10 mg PO DAILY #90 tabs 04/22/22 09/23/22 bisoprolol fumarate 5 mg tablet 5 mg PO DAILY #90 tabs 04/22/22 09/23/22 losartan 100 mg tablet 100 mg PO DAILY #90 tabs 04/22/22 09/23/22 metformin 500 mg tablet 500 mg PO DAILY #90 tabs 04/22/22 09/23/22 nystatin 100,000 unit/gram topical 1 applic topical BID PRN fungal 04/22/22 09/23/22 cream rash feet #30 grams hydrochlorothiazide 12.5 mg tablet 12.5 mg PO DAILY 08/19/22 09/23/22 pantoprazole 20 mg tablet,delayed 40 mg PO DAILY 10/06/22 release (Protonix) fluticasone propionate 50 2 spray intranasal DAILY #16 grams 10/07/22 10/07/22 mcg/actuation nasal spray,suspension nut.tx.gluc.intol,lac-free,soy 237 ml PO BID #30 multiple units 10/07/22 10/07/22 (Glucerna Shake oral liquid) Previous Rx's Medication Instructions Recorded amlodipine 10 mg tablet 10 mg PO DAILY #90 tabs 04/22/22 atorvastatin 10 mg tablet 10 mg PO DAILY #90 tabs 04/22/22 bisoprolol fumarate 5 mg tablet 5 mg PO DAILY #90 tabs 04/22/22 losartan 100 mg tablet 100 mg PO DAILY #90 tabs 04/22/22 metformin 500 mg tablet 500 mg PO DAILY #90 tabs 04/22/22 nystatin 100,000 unit/gram topical 1 applic topical BID PRN fungal 04/22/22 cream rash feet #30 grams fluticasone propionate 50 2 spray intranasal DAILY #16 grams 10/07/22 mcg/actuation nasal spray,suspension nut.tx.gluc.intol,lac-free,soy 237 ml PO BID #30 multiple units 10/07/22 (Glucerna Shake oral liquid) Allergies Allergy/AdvReac Type Severity Reaction Status Date / Time environmental allergies Allergy Intermediate dust, Uncoded 10/07/22 10:09 hayfever General Stated Complaint: Abd Prob RADHA: 3 Review of Systems All systems reviewed & are unremarkable except as noted in HPI and below PFSH All Active Problems (Updated 11/07/22 @ 23:15 by Donnell Gibson DO) Post-operative pain (Acute) Duodenal ulcer (Acute ~09/2022) 09/27/22 endoscopy Disease of biliary tract, unspecified (Acute ~09/2022) 09/27/22 endoscopy Helicobacter pylori (H. pylori) infection (Acute ~08/2022) Gastroesophageal reflux disease (Chronic) Hyperlipidemia (Acute) Diabetes type 2, controlled (Acute) Hypertension (Chronic) Surgical History S/P cholecystectomy (~09/24/22) [facility] 10/11/22 F/U S/P endoscopy (~09/27/22) ERCP at with removal calculi/debris from biliary/pancreatic ducts Family History Paternal Grandfather Cancer Mother Heart disease Hypertension Father Hypertension Social History Smoking/Tobacco Use Status: Former Tobacco Use Smoking risk assessment performed?: Yes Alcohol Intake: former Drug use: Never Household members: family Communication Needs: None Current gender identity: male How often do you talk on the phone with friends or family?: three or more times per week Panel score (0-1 are the most socially isolated patients): 1 What type of physical activity do you participate in: none Do you feel safe at home: Yes Exam Narrative Exam Narrative: 1.Const: Well-nourished, Well-developed, appearing stated age 2.Eyes: PERRL, no conjunctival injection, and symmetrical lids. 3.ENT: Atraumatic external nose and ears. Moist MM. Neck: Symmetric, trachea midline, No thyromegaly. 4.CVS: +S1/S2, No murmurs or gallops. Peripheral pulses 2+ and equal in all extremities. Brisk capillary refill in all extremities. 5.RESP: Unlabored respiratory effort. Clear to auscultation bilaterally. No wheezes rales or rhonchi 6.GI: Soft, nondistended. No hepatosplenomegaly. Incision sites are clean dry and intact. Palpation of the proximalmost incision site demonstrates a mild area of firmness only about a centimeter wide. It is notably tender to palpation by the patient. No other tenderness throughout. No generalized abdominal tenderness. No guarding or rebound. 7.MSK: Normocephalic/Atraumatic, Extremities w/o deformity or ttp No cyanosis or clubbing, Normal movement of all extremities 8.Skin: Warm, Dry. No rashes or lesions. 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 Sensation grossly intact, no focal neurologic deficits. 10.Psych: (AAO) x3. Appropriate mood and affect Course Vital Signs Vital signs: Vital Signs Temperature 36.7 C 11/07/22 20:23 Pulse 66 11/07/22 20:23 Respiratory Rate 14 11/07/22 20:23 Blood Pressure 142/70 H 11/07/22 20:23 Pulse Oximetry 100 11/07/22 20:23 Temperature 36.7 C 11/07/22 20:23 Temperature Source Temporal Artery Scan 11/07/22 20:23 Pulse 62 11/07/22 21:01 Respiratory Rate 14 11/07/22 20:23 Respiratory Effort Normal 11/07/22 20:56 Blood Pressure 133/70 11/07/22 21:01 Blood Pressure Mean 85 11/07/22 21:01 Blood Pressure Position Sitting 11/07/22 20:23 Pulse Oximetry 100 11/07/22 20:23 Oxygen Delivery Method Room Air 11/07/22 20:23 Oxygen Flow Rate 0 11/07/22 20:23 Pain Level 0 11/07/22 20:23 Comment 8/10 while flat or with palpation 11/07/22 20:23 Lab/Test Results Lab/Test Results: Laboratory Tests Range/Units 11/07/22 11/07/22 20:52 20:52 WBC (4.4-10.8) 10^3/uL 7.69 RBC (4.36-5.78) 10^6/uL 4.38 Hgb (13.5-17.5) g/dL 12.2 L Hct (40.0-50.0) % 38.3 L MCV (80-95) fL 87 MCH (27.0-33.0) pg 27.9 MCHC (32.0-36.0) % 31.9 L RDW (11.8-14.1) % 14.2 H Plt Count (130-400) 10^3/uL 316 MPV (8.0-11.0) fL 9.0 Immature Gran % 0.1 Neutrophils % 29.9 Lymphocytes % 59.4 Monocytes % 8.2 Eosinophils % 2.0 Basophils % 0.4 Nucleated RBC % (0.0-0.3) % 0.0 Absolute Neutrophils (1.2-6.7) 10^3/uL 2.30 Absolute Lymphocytes (1.2-3.4) 10^3/uL 4.57 H Absolute Monocytes (0.1-0.8) 10^3/uL 0.63 Absolute Eosinophils (0.0-0.7) 10^3/uL 0.15 Absolute Basophils (0.0-0.2) 10^3/uL 0.03 Sodium (136-145) mmol/L 142 Potassium (3.5-5.1) mmol/L 3.5 Chloride (98-107) mmol/L 104 Carbon Dioxide (21.0-32.0) mmol/L 28.4 Anion Gap (3-11) mmol/L 9.6 BUN (7-18) mg/dL 13 Creatinine (0.70-1.30) mg/dL 1.1 Est GFR (CKD-EPI 2020) (mL/min/1.73m2) 70.44 Glucose (74-106) mg/dL 139 H Calcium (8.5-10.1) mg/dL 9.5 Total Bilirubin (0.2-1.0) mg/dL 0.6 AST (15-37) U/L 13 L ALT (16-63) U/L 24 Alkaline Phosphatase (46-116) U/L 89 Total Protein (6.4-8.2) g/dL 8.2 Albumin (3.4-5.0) g/dL 3.9
--- NOTE | 2022-11-07 22:43 | DI.VRAD_ITS ---
PROCEDURE INFORMATION: Exam: CT Abdomen And Pelvis With Contrast Exam date and time: 11/07/2022 9:56 PM Age: 72 years old Clinical indication: Other: Post surgical incision site pain at superior aspec; Patient HX: Cholecystectomy 09/24/22 TECHNIQUE: Imaging protocol: Computed tomography of the abdomen and pelvis with contrast. Contrast material: 350; Contrast volume: 100 ml; Contrast route: INTRAVENOUS (IV); COMPARISON: MR ABDOMEN WO 09/23/2022 1:26 PM FINDINGS: Lungs: Scar tissue or atelectasis is observed in the lung bases. Heart: Mild cardiomegaly. No pericardial effusion. Liver: Homogeneous liver parenchyma. No abscess. No mass. Gallbladder and bile ducts: Common bile duct stent is in place. Mild pneumobilia is observed. Small rim enhancing fluid collections are present in the gallbladder fossa, with a small focus of gas; see axial images 22-25 series 4 and coronal images 44-48 series 6. The greatest extent of the collections is 3.3 cm, coronal image 46 series 6. Mild free fluid and moderate fat stranding are present in the gallbladder fossa. Pancreas: Normal. No ductal dilation. No significant inflammatory change. Spleen: Normal. No splenomegaly. Adrenal glands: Normal. No mass. Kidneys and ureters: No hydronephrosis. No suspicious renal mass. Multiple cysts are present in both kidneys, largest 8 cm diameter on the right, Hounsfield units 1, with thin septations. Nondilated ureters. No ureteral stones. Stomach and bowel: Unremarkable stomach. Mild fat stranding noted around the proximal duodenum. Nondilated small bowel. Negative for inflammatory changes around the colon. Scattered descending/sigmoid diverticula noted. Appendix: Normal appendix. Intraperitoneal space: Trace free fluid is observed around the liver. No pelvic free fluid. No intraperitoneal free air. Vasculature: Patent portal vein and hepatic veins. Moderate vascular calcifications. Negative for abdominal aortic aneurysm. Lymph nodes: Unremarkable. No enlarged lymph nodes. Urinary bladder: Mild wall thickening, 6 mm. Mild fat stranding. No stones. Reproductive: Large prostate. Bones/joints: No compression fractures. Mild degenerative changes noted in the spine. Dense ossification is observed at the distal right iliopsoas tendon. Soft tissues: Scar tissue noted at midline in the supraumbilical abdominal wall. No abdominal wall fluid collections. No dehiscence. IMPRESSION: 1. Small multiloculated abscess in the gallbladder fossa. 2. No abdominal wall abscess or dehiscence. Dictated and Authenticated by: Christian Chan MD. Ordering:CATHY Jacobo MD
[2022-11-07 22:45] VITALS: BP 144/74; PULSE 92; RESP 14; O2SAT 98
== END 2022-11-07 23:28 | disposition home or self-care (01) ==
PROVIDERS: Emergency Provider Student in an Organized Health Care Education/Training Program; PCP Nurse Practitioner
DX: G89.18 Other acute postprocedural pain (principal); R10.32 Left lower quadrant pain; K81.0 Acute cholecystitis; K57.30 Diverticulosis of large intestine without perforation or abscess without bleeding; I10 Essential (primary) hypertension; E78.5 Hyperlipidemia, unspecified; E11.9 Type 2 diabetes mellitus without complications; Z79.84 Long term (current) use of oral hypoglycemic drugs
CPT/HCPCS: 36415; 80053; 99285; 74177; 85025; 99284; J3490

== ENCOUNTER 2023-08-15 08:30 | Outpatient (RCR) | payer BC, SELFPAY | END 2023-08-16 23:59 | disposition home or self-care (01) | LOC: CR 08:30 | PROVIDERS: PCP Nurse Practitioner; Visit Provider Internal Medicine Cardiovascular Disease | DX: I25.10 Atherosclerotic heart disease of native coronary artery without angina pectoris (principal); Z95.5 Presence of coronary angioplasty implant and graft; Z51.89 Encounter for other specified aftercare | CPT/HCPCS: S9472 ==

== ENCOUNTER 2023-08-26 14:04 | Outpatient (CLI) | payer BC, SELFPAY ==
--- NOTE | 2023-08-26 14:00 | RT.EKG_ITS ---
APPROVED REPORT Exam: Resting ECG Reason for Exam: NPW Baseline needed Patient Location: O HR:56 bpm ECG Measurements Heart Rate 56 AXIS MS 217 P 40 QRSd 98 QRS -39 QT 428 T -2 QTc 414 Conclusion Sinus rhythm...normal P axis, V-rate 50- 99 Borderline prolonged MS interval...MS >212, V-rate 50- 90 Probable left atrial enlargement...P >50mS, <-0.10mV V1 LAFB Baseline wander in lead(s) V3,V5
== END 2023-08-26 14:05 | disposition home or self-care (01) ==
LOC: DI.CARD 14:05
PROVIDERS: PCP Nurse Practitioner; Visit Provider Internal Medicine Cardiovascular Disease
DX: I25.10 Atherosclerotic heart disease of native coronary artery without angina pectoris (principal); Z95.5 Presence of coronary angioplasty implant and graft
CPT/HCPCS: 93010

== ENCOUNTER → 2023-08-29 18:46 | Outpatient (CLI) | payer BC, SELFPAY ==
--- NOTE | 2023-08-29 15:45 | DI.RAD_ITS ---
Exam(s) XR LUMBAR SPINE COMPLETE EXAM: XR LUMBAR SPINE COMPLETE CLINICAL HISTORY: M54.50 LBP, M25.552 Pain in LT hip. TECHNIQUE: 2D digital imaging was performed. COMPARISON: No exams were available for comparison FINDINGS: Five views. No evidence of fracture, listhesis, nor pars defects. All the disc spaces exhibit normal height alth ough there is multilevel anterior osseous lipping which may indicate degenerative disc disease despit e normal disc height. Bone density normal. No osseous lesions. Minimal degenerative changes in the facet joints. SI joints unremarkable. No scoliosis. Calcification in the aortic and iliac arteries noted. IMPRESSION: Mild osseous findings in the lumbar spine as described above. Vascular calcification noted in the aorta and iliac arteries. DATA REPOSITORY: RADIATION DOSE DELIVERED:
--- NOTE | 2023-08-29 15:45 | DI.RAD_ITS ---
Exam(s) XR HIP LT COMPLETE AP PELVIS EXAM: XR HIP LT COMPLETE AP PELVIS CLINICAL HISTORY: M54.50 LBP, M25.552 Pain in LT hip. TECHNIQUE: 2D digital imaging was performed. COMPARISON: No exams were available for comparison FINDINGS: Two views. No evidence of pelvic nor hip fracture. Additional view of the left hip reveals mild degenerative ch anges. No osteophytes. There is dystrophic calcification at the level of the lesser trochanter of t he right hip. IMPRESSION: Dystrophic calcification at the lesser trochanter of the right hip. No acute fractures identified in the pelvis and either hip. DATA REPOSITORY: RADIATION DOSE DELIVERED:
--- NOTE | 2023-08-29 15:45 | DI.RAD_ITS ---
Exam(s) XR KNEE LT 3V AP,LAT,JABIER EXAM: XR KNEE LT 3V AP,LAT,JABIER CLINICAL HISTORY: M25.562 Pain in LT knee. TECHNIQUE: 2D digital imaging was performed. COMPARISON: No exams were available for comparison FINDINGS: 3 views No evidence of acute fracture or joint effusion. Minimal degenerative changes. 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 There appears to be slight separation at the synchondrosis. Correlation with site of tendernes s recommended. IMPRESSION: Bipartite patella. Possible mild separation the synchondrosis. No other osseous findings in the kne e.. DATA REPOSITORY: RADIATION DOSE DELIVERED:
== END ==
PROVIDERS: PCP Nurse Practitioner; Visit Provider Nurse Practitioner
DX: M54.50 Low back pain, unspecified (principal); M25.552 Pain in left hip; M25.562 Pain in left knee
CPT/HCPCS: 73562; 72110; 73502

== ENCOUNTER 2023-09-16 09:24 | Outpatient (RCR) | payer BC, SELFPAY ==
--- NOTE | 2023-09-07 09:15 | RT.EKG_ITS ---
APPROVED REPORT Exam: Resting ECG Reason for Exam: rhythm changes Patient Location: O HR:63 bpm ECG Measurements Heart Rate 63 AXIS TX 198 P 48 QRSd 91 QRS -45 QT 393 T -5 QTc 403 Conclusion Sinus rhythm...normal P axis, V-rate 50- 99 Left anterior fascicular block...axis(240,-40), init forces inf
== END 2023-09-16 23:59 | disposition home or self-care (01) ==
LOC: CR 09:24
PROVIDERS: PCP Nurse Practitioner; Visit Provider Internal Medicine Cardiovascular Disease
DX: I25.10 Atherosclerotic heart disease of native coronary artery without angina pectoris (principal); Z95.5 Presence of coronary angioplasty implant and graft; Z51.89 Encounter for other specified aftercare
CPT/HCPCS: S9472

== ENCOUNTER 2023-10-10 09:18 | Outpatient (RCR) | payer BC, SELFPAY | END 2023-10-16 23:59 | disposition home or self-care (01) | LOC: CR 09:18 | PROVIDERS: PCP Nurse Practitioner; Visit Provider Internal Medicine Cardiovascular Disease | DX: I21.4 Non-ST elevation (NSTEMI) myocardial infarction (principal) | CPT/HCPCS: S9472 ==